=== PATIENT | male | born 1975 | race Hispanic/Latino ===

== ENCOUNTER 2017-01-21 01:38 | Emergency (ER) | payer OTHER, BC ==
[2017-01-21 01:48] VITALS: BMI 22.2
[2017-01-21 01:50] VITALS: BP 119/68; PULSE 57; RESP 18; TEMP 98.1; O2SAT 98
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
== END 2017-01-21 03:05 | disposition home or self-care (01) ==
LOC: ED 01:38
DX: Z04.1 Encounter for examination and observation following transport accident (principal); V49.49XA Driver injured in collision with other motor vehicles in traffic accident, initial encounter; Y92.410 Unspecified street and highway as the place of occurrence of the external cause